=== PATIENT | female | born 1970 | race American Indian/Alaskan Native ===

== ENCOUNTER 2018-10-23 09:39 | Emergency (ER) | payer OTHER, SELFPAY ==
[2018-10-23 10:01] VITALS: BP 149/84
[2018-10-23] MEDS ORDERED: NORCO 5/325 PO ONE (10:36)
--- NOTE | 2018-10-23 11:04 | Emergency Department Report ---
ED Back Pain/Injury HPI - General Chief Complaint: Back Pain/Injury Stated Complaint: TAILBONE/BACK PAIN Time Seen by Provider: 10/23/18 10:35 Source: patient Limitations: No Limitations - History of Present Illness Initial Comments: She was a 48-year-old female comes to the ER today complaining of tailbone and lumbar pain after missing only. This occurred on Sunday. She has been using [id number] meds without relief since that time. Patient is ambulatory. She denies any signs or symptoms of cauda equina. She denies dysuria or hematuria. Patient is on no home medications and has no significant major medical history. MD Complaint: back pain Similar Symptoms Previously: No Place: home Radiation: none Severity: moderate Consistency: constant Improves With: immobilization Worsens With: movement Associated Symptoms: denies other symptoms - Related Data Previous Rx's Medication Instructions Recorded Last Taken Type Cyclobenzaprine [Flexeril] 10 mg PO TID PRN #10 tablet 10/23/18 Unknown Rx methylPREDNISolone [Medrol] 4 mg PO DAILY #1 tab.ds.pk 10/23/18 Unknown Rx traMADol [Ultram] 50 mg PO Q6HR PRN #10 tablet 10/23/18 Unknown Rx Allergies Allergy/AdvReac Type Severity Reaction Status Date / Time No Known Allergies Allergy Unverified 10/23/18 09:44 ED Review of Systems ROS: Stated complaint: TAILBONE/BACK PAIN Other details as noted in HPI Comment: All other systems reviewed and negative ED Past Medical Hx - Past Medical History Medical history: no medical history ED Back Pain Physical Exam - Exam General: Vital signs noted. No distress. Alert and acting appropriately. Back/Abdomen: No Abdominal Tenderness, No Perithoracic Tenderness, No Perilumbar Tenderness, No Sacroiliac Tenderness, No Flank Tenderness, No Straight Leg Raise Pain Neuro: Yes Normal Sensation, Yes Normal DTR's, Yes Normal Gait, No Motor Weakness ED Course Vital Signs 10/23/18 09:58 Temperature 98.3 F Pulse Rate 102 H Respiratory 16 Rate Blood Pressure 149/84 O2 Sat by Pulse 99 Oximetry ED Medical Decision Making - Radiology Data Radiology results: report reviewed, image reviewed - Medical Decision Making XRAY NEG FOR FRACTURE PT IN SIGN PAIN SITTING ON DONUT AND GUARDED WILL DC HOME WITH RX AND FOLLOW UP. Vital Signs 05/01/19 09:58 Temperature 98.3 F Pulse Rate 102 H Respiratory 16 Rate Blood Pressure 149/84 O2 Sat by Pulse 99 Oximetry Critical care attestation.: If time is entered above; I have spent that time in minutes in the direct care of this critically ill patient, excluding procedure time. ED Disposition Clinical Impression: Fall, Back pain, Contusion Disposition: DC- TO HOME OR SELFCARE Is pt being admited?: No Does the pt Need Aspirin: No Condition: Stable Additional Instructions: DIET TOLERATED MEDS ORDERED TODAY IN ER FOLLOW INSTRUCTIONS ON THE BOTTLE FOLLOW UP PCP WITHIN 48 HOURS TO ENSURE YOU ARE GETTING BETTER ACTIVITY TOLERATED MOTRIN OR TYLENOL FOR PAIN OR FEVER--USE THESE FOR MILD PAIN USE TRAMADOL FOR SEVERE PAIN CONTINUE WITH WARM/COLD COMPRESSES FOR COMFORT Prescriptions: Cyclobenzaprine [Flexeril] 10 mg PO TID PRN #10 tablet PRN Reason: Muscle Spasm methylPREDNISolone [Medrol] 4 mg PO DAILY #1 tab.ds.pk traMADol [Ultram] 50 mg PO Q6HR PRN #10 tablet PRN Reason: Pain Referrals: [facility] [Outside] - 3-5 Days KIMBERLEY CHOUDHURY MD [Staff Physician] - 3-5 Days Time of Disposition: 11:14
--- NOTE | 2018-10-23 11:16 | XRay Report ---
LUMBAR SPINE RADIOGRAPHS INDICATION: Lumbar spine and tailbone pain. COMPARISON: None similar. FINDINGS: AP and lateral lumbar spine radiographs suggest slight dextrocurvature apex about L3. Possible transitional lumbosacral vertebra with disc narrowing. Slight mid to lower lumbar degenerative spurring as well. Intact SI joints with slight sclerosis not excluded. Nonobstructive bowel gas pattern. Few left hemipelvic phleboliths. CONCLUSION: No acute radiographic abnormality with few degenerative changes suspected, as described. Thank you for the opportunity to participate in this patient's care.
[2018-10-23] MEDS ORDERED: TORADOL IM ONE (11:20)
[2018-10-23] MEDS ORDERED: DELTASONE PO NR (12:00)
== END 2018-10-23 11:58 | disposition home or self-care (01) ==
LOC: ED 09:39
DX: S30.0XXA Contusion of lower back and pelvis, initial encounter (principal); X58.XXXA Exposure to other specified factors, initial encounter; Y93.89 Activity, other specified; Y92.89 Other specified places as the place of occurrence of the external cause; Y99.8 Other external cause status
CPT/HCPCS: 72100; 96372; 99283; J1885; J7512

== ENCOUNTER 2018-11-15 08:46 | Emergency (ER) | payer OTHER, SELFPAY ==
[2018-11-15] MEDS ORDERED: TORADOL IM ONE (09:34)
[2018-11-15] MEDS ORDERED: PEPCID PO ONE (09:34)
[2018-11-15] MEDS ORDERED: DECADRON IV ONE (09:34)
[2018-11-15] MEDS ORDERED: ULTRAM PO ONE (09:34)
[2018-11-15] MEDS ORDERED: NORCO 5/325 PO ONE (09:46)
--- NOTE | 2018-11-15 10:58 | Emergency Department Report ---
ED Extremity Problem HPI - General Chief complaint: Extremity Injury, Lower Stated complaint: (L) LEG PAIN Time Seen by Provider: 11/15/18 09:28 Source: patient Mode of arrival: Ambulatory Limitations: No Limitations - History of Present Illness Initial comments: 48 year old female with no known past medical history presents to the hospital in the left hip and leg pain 2 days. Patient was seen and evaluated here October 23 after a ground-level fall. Patient landed on her buttock area presented to the lower back pain and cervical pain at that time. Patient states the medications prescribed including Flexeril, Medrol Dosepak, tramadol helped her pain. Symptoms recurred and worsened 2 days ago. No recent injury reported. Pain is at the left lower back extending into the buttock, thigh, lower leg, and with tingling to the toes. She feels like is an internal cramp is not reproducible with touch. Pain worsens with movement and weight is 6/10 in intensity. No urinary incontinence or fever reported. Patient denies long distance travel, leg swelling, chest pain, shortness of breath. Severity scale (0 -10): 8 - Related Data Previous Rx's Medication Instructions Recorded Last Taken Type methylPREDNISolone [Medrol] 4 mg PO DAILY #1 tab.ds.pk 10/23/18 Unknown Rx Cyclobenzaprine [Flexeril 10 MG 10 mg PO TID PRN #10 tablet 11/15/18 Unknown Rx TAB] Naproxen [Naprosyn] 500 mg PO BID PRN #20 tablet 11/15/18 Unknown Rx traMADol [Ultram 50 MG tab] 50 mg PO Q6HR PRN #10 tablet 11/15/18 Unknown Rx Allergies Allergy/AdvReac Type Severity Reaction Status Date / Time No Known Allergies Allergy Verified 11/15/18 08:48 ED Review of Systems ROS: Stated complaint: (L) LEG PAIN Other details as noted in HPI Comment: All other systems reviewed and negative ED Past Medical Hx - Past Medical History Previous Medical History?: No - Surgical History Additional Surgical History: C section - Social History Smoking Status: Never Smoker Substance Use Type: None - Medications Home Medications: Home Medications Medication Instructions Recorded Confirmed Last Taken Type methylPREDNISolone [Medrol] 4 mg PO DAILY #1 tab.ds.pk 10/23/18 Unknown Rx Cyclobenzaprine [Flexeril 10 MG 10 mg PO TID PRN #10 tablet 11/15/18 Unknown Rx TAB] Naproxen [Naprosyn] 500 mg PO BID PRN #20 tablet 11/15/18 Unknown Rx traMADol [Ultram 50 MG tab] 50 mg PO Q6HR PRN #10 tablet 11/15/18 Unknown Rx ED Physical Exam - General Limitations: No Limitations - Other Other exam information: General: No limitations, patient is alert in no acute distress Head exam: Atraumatic, normocephalic Eyes exam: Normal appearance, pupils equal reactive to light, extraocular movements intact ENT: Moist mucous membrane, normal oropharynx Neck exam: Normal inspection, full range of motion, no meningismus nontender Respiratory exam: Clear to auscultation bilateral, no wheezes, rales, crackles Cardiovascular: Normal rate and rhythm, normal heart sounds Abdomen: Soft, nondistended, and nontender, with normal bowel sounds, no rebound, or guarding Extremity: Full range of motion normal inspection no deformity Back: Normal Inspection, full range of motion, tenderness to left lower lumbar area. No gluteal tenderness. Neurologic: Alert, oriented x3, cranial nerves intact, no motor or sensory deficit Psychiatric: normal affect, normal mood Skin: Warm, dry, intact ED Course Vital Signs 11/15/18 11/15/18 11/15/18 09:10 09:53 09:56 Temperature 97.4 F L Pulse Rate 100 H Respiratory 16 22 22 Rate Blood Pressure 176/90 [Left] O2 Sat by Pulse 100 Oximetry 11/15/18 11:00 Temperature Pulse Rate 65 Respiratory 16 Rate Blood Pressure 170/84 [Left] O2 Sat by Pulse 99 Oximetry ED Medical Decision Making - Medical Decision Making Patient's initial tachycardia improved with repeat vital sign. She remains hypertensive. Outpatient referral provided for further monitoring and management of blood pressure and muscular skeletal symptoms. pain improved with ed meds - Differential Diagnosis muscle spasms, radiculopathy, sprain Critical Care Time: No Critical care attestation.: If time is entered above; I have spent that time in minutes in the direct care of this critically ill patient, excluding procedure time. ED Disposition Clinical Impression: Lumbar radiculopathy, acute Disposition: DC-01 TO HOME OR SELFCARE Is pt being admited?: No Does the pt Need Aspirin: No Condition: Stable Instructions: Lumbar Radiculopathy (ED) Additional Instructions: Take the medication as prescribed. Follow up with your doctor or the clinic/doctor provided. Return if symptoms worsen as indicated by your discharge instructions Prescriptions: Cyclobenzaprine [Flexeril 10 MG TAB] 10 mg PO TID PRN #10 tablet PRN Reason: Muscle Spasm Naproxen [Naprosyn] 500 mg PO BID PRN #20 tablet PRN Reason: Pain, Moderate (4-6) traMADol [Ultram 50 MG tab] 50 mg PO Q6HR PRN #10 tablet PRN Reason: Pain Referrals: SISSY DURBIN MD [Primary Care Provider] - 3-5 Days [facility] [Provider Group] - 3-5 Days KIMBERLEY CHOUDHURY MD [Staff Physician] - 3-5 Days Time of Disposition: 11:29
[2018-11-15 11:24] VITALS: BP 170/84
== END 2018-11-15 11:53 | disposition home or self-care (01) ==
LOC: ED 08:46
DX: M54.16 Radiculopathy, lumbar region (principal)
CPT/HCPCS: 96372; 96374; 99283; J1100; J1885